=== PATIENT | male | born 1955 | race Caucasian/White ===

== ENCOUNTER 2024-07-09 01:39 | Emergency (ER) | payer OTHER ==
[~2024-07-09] VITALS: Ht 162.6 cm; Wt 68.0 kg
[2024-07-09] MEDS ORDERED: KETOROLAC TROMETHAMINE 30 MG/ML SDV IM ONE (02:05)
[2024-07-09] MEDS ORDERED: ACETAMINOPHEN 500 MG TAB PO ONE (02:05)
[2024-07-09] MEDS ORDERED: DEXAMETHASONE SOD. PHOSPHATE 10 MG/ML VIAL IM ONE (02:05)
[2024-07-09 02:28] LABS: BASO% 0.3 % (0-3); HEMATOCRIT 41.4 % (39.0-50.0); HEMOGLOBIN 13.9 g/dl (14.0-18.0); IMMATURE GRANULOCYTES 0.2 % (0.0-5.0); LYMPH% 12.3 % (15-41); MEAN CELL VOLUME 86.6 fL CALC (80.0-100.0); MEAN CORPUSCULAR HGB 29.1 pG CALC (26.0-32.0); MEAN CORPUSCULAR HGB CONC 33.6 g/dL CAL (32.0-36.0); MONO% 9.1 % (2-13); NEUT# 10.46 thou/uL (1.82-7.42); NEUT% 75.1 % (42-76); RED BLOOD COUNT 4.78 mill/uL (4.70-6.10); RED CELL DISTRI WIDTH 15.6 % (11.5-15.5)
[2024-07-09 02:32] LABS: ALBUMIN 3.7 g/dL (3.2-5.0); BILIRUBIN, TOTAL 0.9 mg/dL (0.2-1.3); CREATININE 1.4 mg/dL (0.7-1.3); MAGNESIUM 1.6 mg/dL (1.6-2.3); POTASSIUM 3.4 mmol/l (3.5-5.1); TOTAL PROTEIN 6.7 g/dL (6.3-8.2)
[2024-07-09 03:37] LABS: URINE BILIRUBIN - DIPSTICK Negative (NEGATIVE); URINE BLOOD DIPSTICK Negative (NEGATIVE); URINE GLUCOSE - DIPSTICK Negative (NEGATIVE); URINE KETONE Negative (NEGATIVE); URINE LEUK ESTERASE Negative (NEGATIVE); URINE NITRITE - DIPSTICK Negative (Negative); URINE PROTEIN - DIPSTICK Negative (NEG-TRACE); URINE UROBILINOGEN - DIPSTICK 0.2 E.U./dL (0.2)
[2024-07-09 03:38] LABS: URINE COLOR Yellow
[2024-07-09] MEDS ORDERED: VOLTAREN - GENE75 MG PO (03:53)
[2024-07-09 04:07] VITALS: BP 122/78
== END 2024-07-09 04:08 | disposition home or self-care (01) | DRG 556 ==
LOC: ED 01:39
PROVIDERS: Family Medicine
DX: M79.642 Pain in left hand (principal); M79.641 Pain in right hand; I11.0 Hypertensive heart disease with heart failure; I50.9 Heart failure, unspecified; J44.9 Chronic obstructive pulmonary disease, unspecified